=== PATIENT | male | born 1980 | race Caucasian/White ===

== ENCOUNTER 2024-10-08 22:52 | Emergency (ER) | payer OTHER ==
[2024-10-08] MEDS ORDERED: Sodium Chloride 0.9% 10 ML Syringe FLUSH PRN (23:15)
[2024-10-08] MEDS ORDERED: Sodium Chloride 0.9% 20 ML SDV IV PRN (23:15)
[2024-10-08] MEDS ORDERED: Sodium Chloride 0.9% 2.5 ML Syringe FLUSH PRN (23:15)
[2024-10-08] MEDS: Morphine 4 MG/ML Syringe IVPUSH ONE (23:36)
[2024-10-08] MEDS: Ondansetron 4 MG/2 ML SDV IVPUSH ONE (23:37)
[2024-10-08] MEDS: Ketorolac 30 MG/ML SDV IVPUSH ONE (23:37)
[2024-10-08] MEDS: Sodium Chloride 0.9% 1,000 ML IV STA (23:37)
[2024-10-08 23:43] LABS: BASOPHILS ABSOLUTE AUTO 0.08 K/uL (0.00-0.20); BASOPHILS PERCENT AUTO 0.8 % (0.0-1.0); EOSINOPHILS ABSOLUTE AUTO 0.19 K/uL (0.00-0.45); EOSINOPHILS PERCENT AUTO 1.8 % (0.0-6.0); HEMATOCRIT 41.8 % (42.0-52.0); HEMOGLOBIN 15.2 g/dL (14.0-18.0); IMMATURE GRAN ABSOLUTE AUTO 0.06 K/uL (0.00-0.05); IMMATURE GRAN PERCENT AUTO 0.6 % (0.0-0.4); LYMPHOCYTES ABSOLUTE AUTO 2.92 K/uL (1.00-4.80); LYMPHOCYTES PERCENT AUTO 27.9 % (24.0-44.0); MEAN CORPUSCULAR HEMOGLOBIN 32.8 pg (28.0-32.0); MEAN CORPUSCULAR HGB CONC 36.4 g/dL (32.0-36.0); MEAN CORPUSCULAR VOLUME 90.1 fL (83.0-99.0); MEAN PLATELET VOLUME 9.3 fL (9.4-12.4); MONOCYTES PERCENT AUTO 7.7 % (0.0-8.0); NEUTROPHILS PERCENT AUTO 61.2 % (41.0-71.0); PLATELET COUNT,PLT 297 K/uL (150-400); RED BLOOD CELL COUNT 4.64 M/uL (4.52-5.90); WHITE BLOOD CELL COUNT,WBC 10.45 K/uL (3.9-11.3)
[2024-10-09 00:05] LABS: CALCIUM 8.9 mg/dL (8.5-10.1); CARBON DIOXIDE,CO2 24.8 mmol/L (21.0-32.0); CREATININE 1.1 mg/dL (0.8-1.3); EST CRCL DRUG DOSING (CG) 90.32 mL/min; POTASSIUM,K 3.2 mmol/L (3.5-5.1)
== END 2024-10-09 01:15 | disposition home or self-care (01) ==
LOC: MW.ED 22:52
DX: N13.2 Hydronephrosis with renal and ureteral calculous obstruction (principal)
CPT/HCPCS: 36415; 74176; 80048; 85025; 96361; 96374; 96375; 99284; J1885; J2270; J2405; J7030